=== PATIENT | female | born 1960 | race Caucasian/White ===

== ENCOUNTER 2017-05-17 10:42 | Inpatient (IN) | payer OTHER ==
[2017-05-13 13:38] VITALS: BMI 34.2
--- NOTE | 2017-05-17 07:43 | HP ---
History & Physical Update - History History: No Change - Physical Physical: No Change - Assessment Assessment: No Change - Plan Plan: No Change (Chronic neck pain getting worse. Radiating down RUE resulting in numbness, tingling and muscle cramps. Here today for spinal cord stimulator removal. No new complaints or medications since having her initial H&P. ( primary H&P located in her paper chart. completed by Abimael Gilmore MD on ))
[~2017-05-17 10:42] MED LIST: GABAPENTIN 300 MG CAPSULE (FP) PO STA; oxyCODONE HCL 10 MG SUSTAINED ACTING TABLET PO STA
[2017-05-17] MEDS ORDERED: ONDANSETRON 4 MG/2 ML VIAL ONE (13:03)
[2017-05-17] MEDS ORDERED: DEXAMETHASONE SOD PHOSPHATE 4 MG/1 ML VIAL ONE (13:03)
[2017-05-17] MEDS ORDERED: fentaNYL CITRATE 250 MCG/5 ML VIAL ONE (13:03)
[2017-05-17] MEDS ORDERED: MIDAZOLAM HCL 2 MG/2 ML SINGLE DOSE VIAL ONE (13:03)
[2017-05-17] MEDS ORDERED: THROMBIN (BOVINE) 5,000 UNIT VIAL TP ONE ×2 (13:11→14:47)
[2017-05-17] MEDS ORDERED: LIDOCAINE 1%/EPI 1:100000 (20 ML MULTI DOSE VIAL) ONE (13:11)
[2017-05-17] MEDS ORDERED: BUPIVACAINE HCL/PF 2.5 MG/ML - 30 ML VIAL IJ ONE (13:11)
[2017-05-17] MEDS ORDERED: PROPOFOL 20 ML ONE ×3 (13:28→14:00)
[2017-05-17] MEDS ORDERED: ceFAZolin SODIUM 1 GM VIAL ONE ×2 (13:52)
[2017-05-17] MEDS ORDERED: LIDOCAINE 1%/EPI 1:100000 (50 ML MULTI DOSE VIAL) INF ONE (13:55)
[2017-05-17] MEDS ORDERED: oxyCODONE HCL 5 MG TABLET PO PRN (14:00)
[2017-05-17] MEDS ORDERED: ONDANSETRON 4 MG/2 ML VIAL IVPUSH PRN ×2 (14:00→15:23)
[2017-05-17] MEDS ORDERED: LACTATED RINGERS SOLUTION 1,000 ML IV SCH ×2 (14:00→15:30)
[2017-05-17] MEDS ORDERED: ePHEDrine SULFATE 50 MG/1 ML AMPULE ONE (14:30)
[2017-05-17] MEDS ORDERED: GELATIN SPONGE,ABSORBABLE 1 GM PACKET TP ONE (14:48)
--- NOTE | 2017-05-17 15:14 | OP ---
Operative Note - Note: Operative Date: 05/17/17 Pre-Operative Diagnosis: Painful hardware (spinal cord stimulator) Operation: Removal of spinal cord stimulator Findings: battery, 4 leads and 2 anchors Post-Operative Diagnosis: Same as Pre-op Surgeon: Darrick Hickman Logging Truck Driver: Bartolo Romero Anesthesiologist/HARDWOOD FALLER: Italo Sanchez Anesthesia: General Estimated Blood Loss (mls): 10 Fluid Volume Replaced (mls): 600 Operative Report Dictated: Yes
--- NOTE | 2017-05-17 15:15 | SURG ---
Surgery Eggs Inspector Note Eggs Inspector: Bartolo Romero PA-C Date of Service: 05/17/17 Diagnosis: Painful hardware (spinal cord stimulator) Procedure: Removal of spinal cord stimulator I was present for the entirety of the operative procedure. For further detail, please refer to operative report. Visit type - Case Type Case Type: Scheduled Admission - New patient This patient is new to me today: Yes Date on this admission: 05/17/17
[2017-05-17] MEDS: GABAPENTIN 400 MG CAPSULE (FP) PO SCH (21:54)
[2017-05-17] MEDS: clonazePAM 0.5 MG TABLET PO SCH (21:54)
[2017-05-17] MEDS ORDERED: PATIENT'S OWN MEDICATION (NON-FORMULARY) (Clonazepam [Clonazepam] 1 MG) PO SCH (22:00)
--- NOTE | 2017-05-17 22:29 | OP ---
DATE OF OPERATION: 05/17/2017 PREOPERATIVE DIAGNOSIS: Painful hardware. POSTOPERATIVE DIAGNOSIS: Painful hardware. PROCEDURE PERFORMED: Removal of spinal cord stimulator. SURGEON: Pamela Hickman MD SENIOR IOS DEVELOPER: CORINA Duggan ESTIMATED BLOOD LOSS: 50 mL INTRAVENOUS FLUIDS: Per Anesthesia. ANESTHESIA: General. COMPLICATIONS: None. DISPOSITION: Patient brought to the PACU in stable condition. INDICATION FOR SURGERY: The patient is a 56-year-old female who had a spinal cord stimulator placed. She states that she felt that the spinal cord stimulator was not working. Because she was unable to get an MRI, she wanted the spinal cord stimulator to be pulled. Risks, benefits, and alternatives of the procedure were discussed with the patient, and the patient consented to surgery. DESCRIPTION OF OPERATION: The patient was brought to the operating room by the anesthesia staff. After appropriate patient identification was performed, general anesthesia was given. Appropriate anesthetic lines were placed. Neuromonitoring leads were attached. The patient was placed prone onto the OR table with all areas of bony prominences well padded at this time. Her back was prepped and draped in a sterile manner. At this point, a timeout was completed. An incision was made on the right pelvis side. The battery was exposed. A wrench was used to remove the wires from the battery, and the battery was removed. Next, an incision was made over the mid-thoracic spine. The wires were pulled out to this level. Next, an incision was made over the cervical spine. Dissection was performed, and anchors were noticed. They were cut. The wires were pulled out, and the paddle was pulled out. It should be noted that the paddle appeared to be shredded at this time. All bleeding was well controlled at this time. The subcutaneous tissues were closed with 2-0 Vicryl suture. The skin was closed with 3-0 Monocryl suture. Dermabond was applied. Steri-Strips were applied. A sterile dressing was applied. The patient was placed supine on the OR bed, extubated in the OR, and brought to PACU in stable condition. PAMELA HICKMAN M.D. [id number]
[2017-05-18 06:24] VITALS: BP 111/67; PULSE 82; TEMP 97.9
[2017-05-18] MEDS: TOBRAMYCIN 0.3% OPHTH SOLN 5 ML BOTTLE OU SCH ×2 (06:28→09:22)
[2017-05-18] MEDS: GABAPENTIN 400 MG CAPSULE (FP) PO SCH (09:18)
[2017-05-18] MEDS: clonazePAM 0.5 MG TABLET PO SCH (09:19)
[2017-05-18] MEDS ORDERED: MULTIVIT IRON MINER PO SCH (10:00)
[2017-05-18] MEDS ORDERED: [UNRECOGNIZED DRUG - OTHER] PO SCH (10:00)
[2017-05-18] MEDS ORDERED: FOLIC ACID PO SCH (10:00)
[2017-05-18] MEDS ORDERED: MULTIVITAMINS (DAILY MVI) TABLET (FP) PO SCH (10:00)
[2017-05-18] MEDS ORDERED: PATIENT'S OWN MEDICATION (NON-FORMULARY) (Desvenlafaxine Succinate [Pristiq] 50 MG) PO SCH (10:00)
--- NOTE | 2017-05-18 11:05 | PN ---
Progress Note (short form) - Note Progress Note: POD#1 Pt states that she had nausea and emesis x 2 yesterday after surgery. She feels hungry and the nausea has improved. Pain is at her incision site. She has some weakness to the right arm which hasn't changed from before her surgery. No headaches. Vital Signs Period Temp Pulse Resp BP Sys/Fleming Pulse Ox Last 24 Hr 97.7 F-97.9 F 64-641 10-19 109-140/6-82 94-100 GEN: A&0x3 Back: Incision c/d/i. NO drainge or fullness noted LE: no calf tenderness or swelling noted b/l. SCDs in place A/P: 56 yo female s/p Removal of spinal cord stimulator Plan for discharge to home today, RX for pain meds given She does see pain management and has a f/u appointment for 05/25 D/w Dr. Hickman <Fiorella Emerson - Last Filed: 05/18/17 11:12> - Note Progress Note: Patient seen and examined Agree with above D/C Planning <Darrick Hickman - Last Filed: 05/24/17 11:51>
--- NOTE | 2017-05-19 12:02 | PATH ---
Surgical Pathology Report Patient Name: RACHEL CARPENTER Med. Rec. #: [id number] /Age/Gender: 1960 (Age: 56) / F Account: [id number] Location: [facility] MED-SURG Taken: 05/17/2017 Received: 05/17/2017 Reported: 05/19/2017 Physicians: Darrick Hickman M.D. Specimen(s) Received SPINAL CORD STIMULATOR EXPLANT Clinical History Painful hardware Final Diagnosis SPINAL CORD STIMULATOR, EXPLANT: HARDWARE, DESCRIBED (GROSS EXAMINATION ONLY). Electronically Signed Jen Freire M.D. Gross Description Received fresh labeled "spinal cord stimulator explant," is a 5.3 x 4.5 x 0.9 cm vargas metallic device, consistent with a battery. The specimen has the following inscription: "[employer] REF [id number]." Also received within the same container are 4 portions of wire ranging from 65.5-70 cm in length. No soft tissue is present. No sections are submitted, gross only. /05/18/2017 saudi05/18/2017
== END 2017-05-18 10:45 | disposition home or self-care (01) | DRG 791 ==
LOC: FM/S 10:42
PROVIDERS: ADMIT Orthopaedic Surgery Orthopaedic Surgery of the Spine; ATTEND Orthopaedic Surgery Orthopaedic Surgery of the Spine
PROC: 0SP00JZ Removal of Synthetic Substitute from Lumbar Vertebral Joint, Open Approach (ICD-10-PCS; principal; 2017-05-17 13:17)
DX: T85.840A Pain due to nervous system prosthetic devices, implants and grafts, initial encounter (principal); Y83.9 Surgical procedure, unspecified as the cause of abnormal reaction of the patient, or of later complication, without mention of misadventure at the time of the procedure
CPT/HCPCS: 72070-TC-FY; 76000-TC-FY; 88300-TC; 94760